=== PATIENT | female | born 1960 | race American Indian/Alaskan Native ===

== ENCOUNTER 2018-11-27 15:40 | Emergency (ER) | payer OTHER ==
--- NOTE | 2018-11-27 16:06 | Event Note ---
ED Screening Note Date of service: 11/27/18 Time: 16:03 ED Screening Note: 58 y/o female comes in for pain in right leg times 1 day. Denies any injury. Denies any cancer hormal therapy or travel. She does smoke This initial assessment/diagnostic orders/clinical plan/treatment(s) is/are subject to change based on patients health status, clinical progression and re- assessment by fellow clinical providers in the ED. Further treatment and workup at subsequent clinical providers discretion. Patient/guardian urged not to elope from the ED as their condition may be serious if not clinically assessed and managed. Initial orders include:
[2018-11-27 16:27] LABS: Basophils # (Auto) 0.1 K/mm3 (0.0-0.1); Basophils % (Auto) 1.3 % (0.0-1.8); Eosinophils # (Auto) 0.1 K/mm3 (0.0-0.4); Eosinophils % (Auto) 1.7 % (0.0-4.3); Hematocrit 37.5 % (30.3-42.9); Lymphocytes # (Auto) 3.3 K/mm3 (1.2-5.4); Lymphocytes % (Auto) 53.5 % (13.4-35.0); Mean Corpuscular HGB Conc 35 % (30-34); Mean Corpuscular Volume 91 fl (79-97); Monocytes # (Auto) 0.3 K/mm3 (0.0-0.8); Monocytes % (Auto) 5.1 % (0.0-7.3); Platelet Count 190 K/mm3 (140-440); Red Cell Distribution Width 12.8 % (13.2-15.2)
[2018-11-27 16:37] LABS: INR 0.99 (0.87-1.13)
[2018-11-27 16:38] LABS: Partial Thromboplastin Time 27.5 Sec. (24.2-36.6)
[2018-11-27 17:01] LABS: Alanine Aminotransferase 17 units/L (7-56); Albumin 4.6 g/dL (3.9-5); BUN/Creatinine Ratio 20; Blood Urea Nitrogen 12 mg/dL (7-17); Hemolysis Index 4
[2018-11-27] MEDS ORDERED: CYCLOBENZAPRINE 10 MG TAB PO ONE (17:28)
[2018-11-27] MEDS ORDERED: KETOROLAC 30 MG/1 ML INJ IM ONE (17:28)
--- NOTE | 2018-11-27 17:55 | Emergency Department Report ---
ED Extremity Problem HPI - General Chief complaint: Extremity Problem,Nontraumatic Stated complaint: RT LOWER LEG (DVT) Time Seen by Provider: 11/27/18 16:02 Source: patient Mode of arrival: Ambulatory Limitations: No Limitations - History of Present Illness Initial comments: Patient is a 58-year-old female presents emergency room with complaints of pain in her right calf that began yesterday. States that today she felt like she noticed a little swelling to the right calf. states that she went to [facility] her PCP and they advised her to be evaluated to rule out a DVT. Patient states that she walks constantly at work. Denies any fall or injury. Denies any numbness or weakness. no CP, or SOB. She denies any hormone use, recent surgery, recent immobilization. She states the last time she traveled was November 01 and it was only 2 hours to [place]. denies any personal or family history of DVT/PE. Denies any past medical history or allergies medications. - Related Data Previous Rx's Medication Instructions Recorded Last Taken Type Cyclobenzaprine [Flexeril] 10 mg PO QHS PRN #10 tablet 11/27/18 Unknown Rx Naproxen [EC-Naprosyn] 500 mg PO BID PRN #14 tablet. 11/27/18 Unknown Rx Allergies Allergy/AdvReac Type Severity Reaction Status Date / Time No Known Allergies Allergy Unverified 11/27/18 16:03 ED Review of Systems ROS: Stated complaint: RT LOWER LEG (DVT) Other details as noted in HPI Comment: All other systems reviewed and negative ED Past Medical Hx - Past Medical History Previous Medical History?: No - Surgical History Past Surgical History?: Yes Hx Appendectomy: Yes Additional Surgical History: Tubal ligation - Social History Smoking Status: Current Every Day Smoker Substance Use Type: Alcohol - Medications Home Medications: Home Medications Medication Instructions Recorded Confirmed Last Taken Type Cyclobenzaprine [Flexeril] 10 mg PO QHS PRN #10 tablet 11/27/18 Unknown Rx Naproxen [EC-Naprosyn] 500 mg PO BID PRN #14 tablet. 11/27/18 Unknown Rx ED Physical Exam - General Limitations: No Limitations General appearance: alert, in no apparent distress - Head Head exam: Present: atraumatic, normocephalic - Eye Eye exam: Present: normal appearance - ENT ENT exam: Present: mucous membranes moist - Extremities Exam Extremities exam: Present: other (mild TTP to the right calf, no edema present, FROM of the right leg, pt is ambulatory, neurovascularly intact) - Neurological Exam Neurological exam: Present: alert, oriented X3 - Psychiatric Psychiatric exam: Present: normal affect, normal mood - Skin Skin exam: Present: warm, dry, intact. Absent: rash ED Course Vital Signs 11/27/18 11/27/18 16:03 17:43 Temperature 98.1 F Pulse Rate 69 72 Respiratory 16 16 Rate Blood Pressure 140/53 Blood Pressure 139/64 [Right] O2 Sat by Pulse 98 98 Oximetry ED Medical Decision Making - Lab Data Result diagrams: 11/27/18 16:10 11/27/18 16:10 Lab Results 11/27/18 11/27/18 11/27/18 Range/Units 16:10 16:10 16:10 WBC 6.2 (4.5-11.0) K/mm3 RBC 4.10 (3.65-5.03) M/mm3 Hgb 13.0 (10.1-14.3) gm/dl Hct 37.5 (30.3-42.9) % MCV 91 (79-97) fl MCH 32 (28-32) pg MCHC 35 H (30-34) % RDW 12.8 L (13.2-15.2) % Plt Count 190 (140-440) K/mm3 Lymph % (Auto) 53.5 H (13.4-35.0) % [place] % (Auto) 5.1 (0.0-7.3) % Eos % (Auto) 1.7 (0.0-4.3) % Baso % (Auto) 1.3 (0.0-1.8) % Lymph # 3.3 (1.2-5.4) K/mm3 Free[place] # 0.3 (0.0-0.8) K/mm3 Eos # 0.1 (0.0-0.4) K/mm3 Baso # 0.1 (0.0-0.1) K/mm3 Seg Neutrophils % 38.4 L (40.0-70.0) % Seg Neutrophils # 2.4 (1.8-7.7) K/mm3 PT 12.8 (12.2-14.9) Sec. INR 0.99 (0.87-1.13) APTT 27.5 (24.2-36.6) Sec. Sodium 143 (137-145) mmol/L Potassium 3.8 (3.6-5.0) mmol/L Chloride 102.3 (98-107) mmol/L Carbon Dioxide 27 (22-30) mmol/L Anion Gap 18 mmol/L BUN 12 (7-17) mg/dL Creatinine 0.6 L (0.7-1.2) mg/dL Estimated GFR > 60 ml/min BUN/Creatinine Ratio 20 % Glucose 162 H (65-100) mg/dL Calcium 9.0 (8.4-10.2) mg/dL Total Bilirubin 0.20 (0.1-1.2) mg/dL AST 21 (5-40) units/L ALT 17 (7-56) units/L Alkaline Phosphatase 85 (35-129) units/L Total Protein 7.6 (6.3-8.2) g/dL Albumin 4.6 (3.9-5) g/dL Albumin/Globulin Ratio 1.5 % - Radiology Data Radiology results: report reviewed Duplex Doppler lower extremity veins, right Findings: common femoral vein: Negative. Superficial femoral vein: Negative Popliteal vein: Negative Caffeines: Negative Additional findings: None Impression: No sonographic evidence for DVT in the right lower extremity Sign her name Antonio Huertas M.D. Signed: [id number] 4:06 PM Workstation name: [id number] - Medical Decision Making Patient is a 58-year-old female presents emergency room with complaints of pain in her right calf that began yesterday. States that today she felt like she noticed a little swelling to the right calf. states that she went to [facility] her PCP and they advised her to be evaluated to rule out a DVT. Patient states that she walks constantly at work. Denies any fall or injury. Denies any numbness or weakness. no CP, or SOB. She denies any hormone use, recent surgery, recent immobilization. She states the last time she traveled was November 01 and it was only 2 hours to [place]. denies any personal or family history of DVT/PE. Denies any past medical history or allergies medications. VSS. on exam: mild TTP to the right calf, no edema present, FROM of the right leg, pt is ambulatory, neurovascularly intact, no rash. US RLE: No sonographic evidence for DVT in the right lower extremity. Patient's discomfort treated while in the emergency department and improved. given prescription for anti-inflammatory and muscle relaxer. advised pt to take medication as prescribed as needed. Use ice packs, heating pad, rest, epsom salt bath. Follow up with your primary care doctor in the next 2-3 days. Return to the emergency room for any new or worsening symptoms. - Differential Diagnosis DVT, arthritis, muscle spasm, muscle strain, leg pain Critical care attestation.: If time is entered above; I have spent that time in minutes in the direct care of this critically ill patient, excluding procedure time. ED Disposition Clinical Impression: Right calf pain Disposition: TO HOME OR SELFCARE Is pt being admited?: No Does the pt Need Aspirin: No Condition: Stable Instructions: Leg Cramps (ED) Additional Instructions: Take medication as prescribed as needed. Use ice packs, heating pad, rest, epsom salt bath. Follow up with your primary care doctor in the next 2-3 days. Return to the emergency room for any new or worsening symptoms. Prescriptions: Cyclobenzaprine [Flexeril] 10 mg PO QHS PRN #10 tablet PRN Reason: Muscle Spasm Naproxen [EC-Naprosyn] 500 mg PO BID PRN #14 tablet.dr ZACARIAS Reason: pain Referrals: PRIMARY CARE, [Primary Care Provider] - 2-3 Days Forms: Work/School Release Form(ED) Time of Disposition: 19:12 Print Language: GREENLANDIC
[2018-11-27 19:21] VITALS: BP 139/64
--- NOTE | 2018-12-01 10:59 | Vascular Lab Report ---
DUPLEX DOPPLER LOWER EXTREMITY VEINS, RIGHT INDICATION: right leg and calf swelling and pain.. TECHNIQUE: Duplex doppler imaging was performed through the veins of the right lower extremity using venous comp ression and other maneuvers. COMPARISON: None available. FINDINGS: Common femoral vein: Negative. Superficial femoral vein: Negative. Popliteal vein: Negative. Calf veins: Negative. Additional findings: None. IMPRESSION: 1. No sonographic evidence for DVT in the right lower extremity. Signer Name: Bruce Dumont MD Signed: 11/27/2018 5:06 PM Workstation Name: [id number]
== END 2018-11-27 19:27 | disposition home or self-care (01) ==
LOC: ED 15:40
DX: M79.661 Pain in right lower leg (principal); M79.89 Other specified soft tissue disorders; Z90.49 Acquired absence of other specified parts of digestive tract; F17.200 Nicotine dependence, unspecified, uncomplicated; Z98.51 Tubal ligation status
CPT/HCPCS: 36415; 80053; 85025; 85610; 85730; 96372; 99284; J1885